=== PATIENT | male | born 1995 | race Caucasian/White ===

== ENCOUNTER 2017-10-29 21:36 | Observation (INO) ==
[2017-10-29] MEDS ORDERED: cefTRIAXone 1,000 MG in Water for inj. (sterile) 20 ML 10 ML IVP ONE (21:49)
--- NOTE | 2017-10-29 21:51 | Emergency Department Note ---
Disposition Clinical Impression: Cellulitis and abscess of hand Disposition: Admitted As Inpatient General Adult HPI - General Chief complaint: ED Skin/Abscess/Foreign Body Stated complaint: infection in thumb Time Seen by Provider: 10/29/17 21:46 Source: patient Limitations: no limitations - History of Present Illness Pain Scale: 7 - Related Data Previous Rx's Medication Instructions Recorded Ciprofloxacin [Cipro] 500 mg PO BID #20 tablet 10/29/17 Doxycycline 100 mg PO BID #20 capsule 10/29/17 Allergies Allergy/AdvReac Type Severity Reaction Status Date / Time No Known Allergies Allergy Verified 10/29/17 21:42 Past Medical History - Past Medical History Medical history: Reports: no medical history Surgical history: Reports: non-contributory Psychiatric history: Reports: no psych history - Social History Smoking Status: Never smoker Smokeless Tobacco Status: No Alcohol use: Reports: none Drug use: Reports: none Physical Exam - General Limitations: no limitations General appearance: alert, in no apparent distress Course - Reevaluation(s) Reevaluation #1: Attestation note I examined this patient and my medical decision-making was reviewed with the emergency medicine resident. I agree with the documented findings, disposition and treatment plan as described except to the extent set forth below. Patient seen with emergency medicine resident Dr. Junaid Lara, Please see a copy of his note for details of the H&P, ED evaluation, management and disposition. I have independently evaluated the patient and confirmed appropriate portions of the history and physical exam. Briefly: 22-year-old male [id number] was seen last night by Dr. Lara for an infection in his right thumb was given a dose of IV antibiotics and sent discharge home to oral antibiotics. However patient is having worsening redness and discomfort and swelling. Patient will be admitted after screening labs are repeated in the ED for cellulitis spelled outpatient management. Admission disposition pending Time: 21:49 Vital Signs Temperature 98.2 F 10/29/17 21:40 Pulse Rate 102 10/29/17 21:40 Respiratory Rate 20 10/29/17 21:40 Blood Pressure 156/84 10/29/17 21:40 O2 Sat by Pulse Oximetry 98 10/29/17 21:40 Temperature 98.2 F 10/29/17 21:45 Pulse Rate 102 10/29/17 21:45 Respiratory Rate 20 10/29/17 21:45 Blood Pressure 156/84 10/29/17 21:45 O2 Sat by Pulse Oximetry 98 10/29/17 21:45 Oxygen Delivery Oxygen Delivery Room Air
[2017-10-29] MEDS ORDERED: 0.9 % Sodium Chloride 1,000 ML IVC ONE (21:52)
--- NOTE | 2017-10-29 21:52 | Emergency Department Note ---
Disposition Clinical Impression: Cellulitis and abscess of hand Cellulitis Qualifiers: Site of cellulitis: extremity Site of cellulitis of extremity: finger Laterality: right Qualified Code(s): L03.011 - Cellulitis of right finger Disposition: Admitted As Inpatient Condition: Undetermined Forms: ED Satisfaction Letter Time of Disposition: 22:14 Skin/Abscess/FB HPI Chief complaint: ED Skin/Abscess/Foreign Body Stated complaint: infection in thumb Time Seen by Provider: 10/29/17 21:46 Source: patient Mode of arrival: ambulatory Limitations: no limitations Nursing Notes Reviewed: Yes Vital Signs Reviewed: Yes HPI Narrative: 22-year-old male with no previous medical history arrives to the emergency department as a recheck for cellulitis of the right thumb. The patient was seen by myself roughly 1 day ago he was evaluated for cellulitis of the right thumb. CT scan shows cellulitis. He was given 1 dose of vancomycin here in the emergency department and prescribed Cipro and doxycycline outpatient to which he took. The patient states that he is having worsening swelling, pain and the redness starting to move proximally from his right hand. The patient denies any fevers chills or crepitus noted. No crepitus on examination. Patient denies any other complaints. Given the patient's failed outpatient cellulitis, we will admit the patient to the hospital at this time with IV anabiotic's. Patient made aware and agrees to plan. No further questions or concerns noted. Home Medications Medication Instructions Recorded Confirmed No Known Home Drugs 10/29/17 10/29/17 Allergies Allergy/AdvReac Type Severity Reaction Status Date / Time No Known Allergies Allergy Verified 10/29/17 21:53 All systems ED: reviewed and negative except as stated. Constitutional: Denies: fever, chills, weakness ENT ED: Denies: congestion Cardiovascular: Denies: chest pain Respiratory: Denies: dyspnea Gastrointestinal: Denies: abdominal pain Genitourinary: Denies: urgency Musculoskeletal: Denies: back pain Integumentary: Reports: lesions Neurological: Denies: headache Past Medical History - Past Medical History Attestation: Yes The following information was validated with the patient. Source: patient Medical history: Reports: no medical history Surgical history: Reports: non-contributory Psychiatric history: Reports: no psych history - Social History Smoking Status: Never smoker Smokeless Tobacco Status: No Alcohol use: Reports: none Drug use: Reports: none Physical Exam - General Limitations: no limitations General appearance: alert, in no apparent distress - Head Head exam: atraumatic, normocephalic, normal inspection - Eye Eye exam: Present: normal appearance, PERRL, EOMI - ENT ENT exam: normal exam, normal oropharynx, mucous membranes moist - Neck Neck exam: Present: normal inspection - Chest Chest inspection: Present: normal inspection, symmetric chest wall rise - Respiratory Respiratory exam: Absent: respiratory distress - Cardiovascular Cardiovascular exam: Present: tachycardia - Extremities Exam Extremities exam: Present: other (Patient has tenderness and swelling to right first digit on the dorsal aspect. There is erythema that is radiating proximally from demarcation that was noted from one day ago. Tenderness with flexion and extension noted. Swelling has increased from examination 24 hours ago.) - Neurological Exam Neurological exam: Present: alert, oriented X3 - Skin Skin exam: Present: erythema Course Vital Signs Temperature 98.2 F 10/29/17 21:40 Pulse Rate 102 10/29/17 21:40 Respiratory Rate 20 10/29/17 21:40 Blood Pressure 156/84 10/29/17 21:40 O2 Sat by Pulse Oximetry 98 10/29/17 21:40 Temperature 98.2 F 10/29/17 21:45 Pulse Rate 102 10/29/17 21:45 Respiratory Rate 20 10/29/17 21:45 Blood Pressure 156/84 10/29/17 21:45 O2 Sat by Pulse Oximetry 98 10/29/17 21:45 Oxygen Delivery Oxygen Delivery Room Air Skin/Abscess/Foreign Body - MDM Narrative Medical decision making narrative: Patient will be admitted to the hospital at this time. Accepted by Dr. Patton. - Lab Data Lab results reviewed: Yes I reviewed the patient's lab results. Result diagrams: 10/29/17 21:53 Lab Results 10/29/17 Range/Units 21:53 WBC 10.5 (4.3-11.1) K/mcL RBC 5.44 (4.19-5.50) M/mcL Hgb 16.2 (12.9-16.9) g/dL Hct 48.2 (37.5-50.1) % MCV 88.6 (83.0-100.0) fL MCH 29.8 (28.0-33.3) pg MCHC 33.6 (31.6-35.5) g/dL RDW 12.8 (11.5-14.5) % Plt Count 146 (140-400) K/mcL MPV 10.6 (9.4-12.4) fL Immature Gran % 0.3 (0-4) % Seg Neutrophils % 65.6 % Lymphocytes % 24.7 % Monocytes % 6.8 % Eosinophils % 2.1 % Basophils % 0.5 % Neutrophils # 6.9 (1.6-8.9) K/mcL Lymphocytes # 2.6 (0.6-4.6) K/mcL Monocytes # 0.7 (0.0-1.3) K/mcL Eosinophils # 0.2 (0.0-0.6) K/mcL Basophils # 0.1 (0.0-0.2) K/mcL
[2017-10-29 22:06] LABS: Basophils # 0.1 K/mcL (0.0-0.2); Basophils % 0.5 %; Eosinophils # 0.2 K/mcL (0.0-0.6); Eosinophils % 2.1 %; Hematocrit 48.2 % (37.5-50.1); Hemoglobin 16.2 g/dL (12.9-16.9); Immature Granulocytes % 0.3 % (0-4); Lymphocytes # 2.6 K/mcL (0.6-4.6); Lymphocytes % 24.7 %; Mean Corpuscular HGB Conc 33.6 g/dL (31.6-35.5); Mean Corpuscular Hemoglobin 29.8 pg (28.0-33.3); Mean Corpuscular Volume 88.6 fL (83.0-100.0); Mean Platelet Volume 10.6 fL (9.4-12.4); Monocytes # 0.7 K/mcL (0.0-1.3); Monocytes % 6.8 %; Neutrophils # 6.9 K/mcL (1.6-8.9); Platelet Count 146 K/mcL (140-400); Red Blood Count 5.44 M/mcL (4.19-5.50); Red Cell Distribution Width 12.8 % (11.5-14.5); Segmented Neutrophils % 65.6 %
[2017-10-29 22:25] LABS: BUN/Creatinine Ratio 13 (6-26); Blood Urea Nitrogen 11 mg/dL (6-20); Calcium 9.8 mg/dL (8.6-10.3); Carbon Dioxide 29 mEq/L (23-29); Chloride 104 mEq/L (98-107); Glucose 108 mg/dL (70-105); Osmolality,Calculated 288 (280-300); Potassium 4.1 mEq/L (3.5-5.1); Sodium 139 mEq/L (136-145); eGFR For African Americans > 60 (> 60); eGFR For Non-African Americans > 60 (> 60)
--- NOTE | 2017-10-29 23:00 | Internal Med History&Physical ---
Date of Encounter: 10/30/17 Time of Encounter: 23:00 Internal Medicine - H&P: HPI Chief complaint: thumb pain History of present illness: Mr. Villavicencio is a 22 year old malewith no previous medical history arrives to the emergency department as a recheck for cellulitis of the right thumb. The patient was seen by 1 day ago he was evaluated for cellulitis of the right thumb. CT scan shows cellulitis. He was given 1 dose of vancomycin in emergency department and prescribed Cipro and doxycycline outpatient. The patient states that he is having worsening swelling, pain and the redness starting to move proximally from his right hand. The patient was admitted for further management. Past Med Surg Social Fam HX - Past Medical History Medical history: no medical history Psychiatric history: no psych history - Past Surgical History Surgical History: non-contributory - Social History Smoking Status: Never smoker Smokeless Tobacco Status: No Alcohol use: none Drug use: none Internal Medicine - H&P: Meds No Known Home Drugs 10/29/17 [History] 3 Allergy/AdvReac Type Severity Reaction Status Date / Time No Known Allergies Allergy Verified 10/29/17 21:53 All Systems PM: A 10-system review of systems was performed and is negative for pertinent findings except as documented above in the HPI. - Constitutional Constitutional: no chills, no fever(s), no night sweats - Cardiovascular Cardiovascular ROS IM: no chest pain, no diaphoresis, no dyspnea, no lightheadedness, no palpitations, no syncope - Respiratory Respiratory: no cough, no dyspnea, no wheezing, no excessive phlegm production - Gastrointestinal Gastrointestinal: no abdominal pain, no diarrhea, no hematemesis, no hematochezia, no melena, no nausea, no vomiting - Neurological Neurological ROS: no confusion, no convulsions, no focal weakness, no numbness, no tingling, no tremor(s) - Constitutional Vitals: Temp Pulse Resp BP Pulse Ox 98.2 F 102 18 142/87 98 10/29/17 21:45 10/29/17 21:45 10/29/17 22:53 10/29/17 22:53 10/29/17 21:45 General appearance: Present: A&O X 3 - Head Head exam: Present: atraumatic, normocephalic - Neck Neck exam general surgery: Present: supple, trachea midline. Absent: lymphadenopathy - Respiratory Respiratory exam: Present: CTAB. Absent: accessory muscle use, rales, rhonchi, wheezes - Cardiovascular Cardiovascular exam: Present: RRR, +S1, +S2. Absent: diastolic murmur, gallop, rubs, systolic murmur - GI/Abdominal GI/Abdominal exam: Present: normal bowel sounds, soft, no peritoneal signs. Absent: distended, tenderness - Extremities Exam Extremities exam: Present: tenderness, warm Internal Med - H&P Results - Labs CBC & Chem 7: 10/30/17 02:50 10/30/17 02:50 - Assessment and plan (1) Cellulitis Current Visit: Yes Status: Acute Assessment and plan: We will start empiric antibiotics, I suspect spider bite. Said that her surgery consult if there is no improvement Qualifiers: Site of cellulitis: extremity Site of cellulitis of extremity: finger Laterality: right Qualified Code(s): L03.011 - Cellulitis of right finger - Time Spent With Patient Total time spent is greater than 50% in coordination of care (as documented) at patient's floor/unit and/or counseling patient:
[2017-10-30] MEDS ORDERED: Acetaminophen 325 MG TABLET PO PRN (01:59)
[2017-10-30] MEDS ORDERED: Naloxone 0.4 MG/ML INJ IVP PRN (01:59)
[2017-10-30] MEDS: *HR* HYDROcodone/Acet 5/325 mg TABLET PO PRN ×3 (02:42→21:08)
[2017-10-30] MEDS: 0.9 % Sodium Chloride 1,000 ML IVC SCH ×2 (02:43→10:42)
[2017-10-30 03:01] LABS: Basophils % 0.4 %; Eosinophils # 0.2 K/mcL (0.0-0.6); Eosinophils % 1.8 %; Hematocrit 47.1 % (37.5-50.1); Hemoglobin 15.9 g/dL (12.9-16.9); Immature Granulocytes % 0.2 % (0-4); Immature Platelets 3.8 % (1.1-6.1); Lymphocytes # 2.2 K/mcL (0.6-4.6); Lymphocytes % 21.5 %; Mean Corpuscular HGB Conc 33.8 g/dL (31.6-35.5); Mean Corpuscular Hemoglobin 29.5 pg (28.0-33.3); Mean Corpuscular Volume 87.4 fL (83.0-100.0); Mean Platelet Volume 10.5 fL (9.4-12.4); Monocytes # 0.6 K/mcL (0.0-1.3); Monocytes % 6.1 %; Neutrophils # 7.1 K/mcL (1.6-8.9); Platelet Count 129 K/mcL (140-400); Red Blood Count 5.39 M/mcL (4.19-5.50); Red Cell Distribution Width 12.7 % (11.5-14.5)
[2017-10-30 03:19] LABS: Alanine Aminotransferase 15 Units/L (7-52); Albumin 4.4 g/dL (3.5-5.7); Albumin/Globulin Ratio 1.9 (1.1-2.2); Alkaline Phosphatase 94 Units/L (34-104); Aspartate Amino Transferase 15 Units/L (13-39); BUN/Creatinine Ratio 12 (6-26); Bilirubin,Total 0.6 mg/dL (0.3-1.0); Blood Urea Nitrogen 9 mg/dL (6-20); Calcium 9.6 mg/dL (8.6-10.3); Carbon Dioxide 26 mEq/L (23-29); Chloride 106 mEq/L (98-107); Chol/HDL Ratio 2.7 (0-4.9); Cholesterol 107 mg/dL (< 200); Globulin 2.3 g/dL (2.4-3.5); Glucose 109 mg/dL (70-105); HDL Cholesterol 40 mg/dL (40-59); LDL Cholesterol,Calculated 52 mg/dL (0-99); Magnesium 1.9 mg/dL (1.6-2.6); Osmolality,Calculated 285 (280-300); Phosphorous 3.6 mg/dL (2.7-4.5); Potassium 4.1 mEq/L (3.5-5.1); Sodium 138 mEq/L (136-145); Total Protein 6.7 g/dL (6.4-8.9); Triglycerides 73 mg/dL (< 150); eGFR For African Americans > 60 (> 60); eGFR For Non-African Americans > 60 (> 60)
[2017-10-30 03:32] LABS: INR 1.1; Prothrombin Time 12.3 Seconds (9.4-12.1)
[2017-10-30 03:34] LABS: Activated Partial Thrombo Time 32.1 Seconds (26.0-36.0)
--- NOTE | 2017-10-30 10:25 | Internal Med Progress Note ---
Date of Encounter: 10/30/17 Time of Encounter: 10:23 - Assessment and plan (1) Cellulitis Current Visit: Yes Status: Acute Assessment and plan: Patient right thumb cellulitis improved with decrease the size of the rash, continue IV antibiotics, plan to switch to oral antibiotics tomorrow and discharge. Qualifiers: Site of cellulitis: extremity Site of cellulitis of extremity: finger Laterality: right Qualified Code(s): L03.011 - Cellulitis of right finger - Time Spent With Patient Total time spent is greater than 50% in coordination of care (as documented) at patient's floor/unit and/or counseling patient: 25 - 35 minutes - Subjective Interval history: Patient seen and examined in the room, right thumb cellulitis has improved. - Constitutional Vitals: Temp Pulse Resp BP Pulse Ox 98.1 F 60 16 154/67 100 10/30/17 07:32 10/30/17 07:32 10/30/17 07:32 10/30/17 07:32 10/30/17 07:32 General appearance: Present: A&O X 3 Exam: PHYSICAL EXAMINATION: GENERAL APPEARANCE: The patient is alert, oriented and in no acute distress. HEENT: Head is normocephalic. The sinuses are nontender. Pupils are equal and reactive. The nares are patent. Oropharynx clear without lesions. NECK: Supple without lymphadenopathy. HEART: Regular rate and rhythm. LUNGS: No crackles or wheezes are heard. ABDOMEN: Soft, nontender, nondistended with good bowel sounds heard. Inguinal area is normal. EXTREMITIES: Without cyanosis, clubbing or edema. NEUROLOGICAL: Gross nonfocal. SKIN: Right thumb cellulitis noted. Internal Medicine: Result - Labs CBC & Chem 7: 10/30/17 02:50 10/30/17 02:50 Labs: Short CBC 10/30/17 Range/Units 02:50 WBC 10.2 (4.3-11.1) K/mcL Hgb 15.9 (12.9-16.9) g/dL Hct 47.1 (37.5-50.1) % Plt Count 129 L (140-400) K/mcL Neutrophils # 7.1 (1.6-8.9) K/mcL BMP 10/30/17 02:50 Sodium 138 Potassium 4.1 Chloride 106 Carbon Dioxide 26 BUN 9 Creatinine 0.74 Glucose 109 H Calcium 9.6 Liver Function 10/30/17 Range/Units 02:50 Total Bilirubin 0.6 (0.3-1.0) mg/dL AST 15 (13-39) Units/L ALT 15 (7-52) Units/L Alkaline Phosphatase 94 (34-104) Units/L Albumin 4.4 (3.5-5.7) g/dL - ABG Interpretation ABG results: PT/INR, D-dimer PT 12.3 Seconds (9.4-12.1) H 10/30/17 02:50 Consult Discharge Plan - Plan Referrals: NONE,PCP [Primary Care Provider] -
[2017-10-30 11:02] LABS: Bilirubin,Urine Negative (Negative); Blood,Urine Negative (Negative); Clarity,Urine Clear (Clear); Color,Urine Yellow (Yellow); Glucose,Urine (UA) Normal (Normal); Ketones,Urine Negative (Negative); Leukocyte Esterase,Urine Negative (Negative); Nitrite,Urine Negative (Negative); PH,Urine 6.5 pH Units (5.0-8.0); Protein,Urine Negative (Neg-Trace); Specific Gravity,Urine 1.017 (1.010-1.025); Urobilinogen,Urine Normal (Normal)
[2017-10-31] MEDS: *HR* HYDROcodone/Acet 5/325 mg TABLET PO PRN (10:29)
[2017-10-31 11:16] VITALS: BP 131/77
--- NOTE | 2017-10-31 11:48 | Discharge Summary ---
- NOTES TO OUTPATIENT PROVIDER Notes to Outpatient Provider: Mr. Villavicencio a 22 year old male was admitted for cellulitis of the right thumb d/t suspected spider bite on 10/29/2017 from the emergency department. . Patient was discharged on 10/31/2017 with continuation of po Doxycycline, and Cipro for the next 10 days. Advised to follow up with PCP in 3-5 days. Date of Encounter: 10/31/17 Time of Encounter: 11:39 - Discharge Diagnosis (1) Cellulitis Priority: Primary Status: Acute Assessment and Plan: To receive next dose of Vancomycin. Discussed with patient to be discharged home on Doxycycline and Cipro PO, and follow up with PCP. Will discharge home. Qualifiers: Site of cellulitis: extremity Site of cellulitis of extremity: finger Laterality: right Qualified Code(s): L03.011 - Cellulitis of right finger (2) Cellulitis and abscess of hand Priority: Primary Status: Acute Assessment and Plan: See above Hospital course: Mr. Villavicencio is a 22 year old male Hospital course : CT scan of right thumb showed cellulitis. he was given 1 dose of IV Vancomycin, in the ED and was prescribed Doxycycline and Cipro as outpatients. He stated that he was unable to fill the po outpatinet medications, and returned to the ED subsequently was admitted to the Observation Unit with [facility]. He was continued on IV Vancomycin with improvement of cellulites right thumb. Discharge discussed with: family (Complete all antibiotics til gone. Keep wound clean and dry. If s/s fail to improve or worsen, return to urgent care, or ED ) - Time Spent with Patient Total time spent providing and/or coordinating discharge services: - Discharge Medications Prescriptions: Ciprofloxacin [Cipro] 500 mg PO BID 10 Days #20 tablet Doxycycline Hyclate 100 mg PO BID 10 Days #20 capsule Home Medications: Ciprofloxacin [Cipro] 500 mg PO BID 10 Days #20 tablet 10/31/17 [Rx] Doxycycline Hyclate 100 mg PO BID 10 Days #20 capsule 10/31/17 [Rx] Allergies/Adverse Reactions: 3 Allergy/AdvReac Type Severity Reaction Status Date / Time No Known Allergies Allergy Verified 10/29/17 21:53 Date of admission: 10/29/17 22:30 Primary care physician: PCP NONE - Constitutional Vitals: Temp Pulse Resp BP Pulse Ox 98.4 F 72 18 131/77 98 10/31/17 11:15 10/31/17 11:15 10/31/17 11:15 10/31/17 11:15 10/31/17 11:15 General appearance: Present: A&O X 3, pleasant - Respiratory Respiratory exam: Present: CTAB - Cardiovascular Cardiovascular exam: Present: RRR - Neurological Exam Neurological exam: Present: CN II-XII intact, normal gait, oriented X3 - Skin Skin exam: Present: erythema, warm Additional comments: Right thumb shows improvement of the cellulitic changes to the skin with decrease in swelling has lessened significantly with the vancomycin treatment. There is a black central lesion due to insect puncture wound from previous spider bite edema mild swelling approximately 3 cm in diameter located on the dorsal aspect of the right thumb. No drainage is noted at this time - Patient Status Disposition: Home, Self-Care Condition: Good Functional capacity at discharge: independent ambulation - Discharge Instructions Instructions: Cellulitis (DC) Follow Up With: NONE,PCP [Primary Care Provider] - - Diet and Activity Activity: resume usual activities as tolerated
--- NOTE | 2017-10-31 12:32 | Internal Med Progress Note ---
Date of Encounter: 10/31/17 Time of Encounter: 12:31 - Assessment and plan (1) Cellulitis Current Visit: Yes Status: Acute Qualifiers: Site of cellulitis: extremity Site of cellulitis of extremity: finger Laterality: right Qualified Code(s): L03.011 - Cellulitis of right finger (2) Cellulitis and abscess of hand Current Visit: Yes Status: Acute - Time Spent With Patient Total time spent is greater than 50% in coordination of care (as documented) at patient's floor/unit and/or counseling patient: - Subjective Interval history: Nursing staff notified that [facility] urgent care had called the patient and c/s was positive for MRSA. Is being discharged on appropriate po medications to cover Bacteremia - Constitutional Vitals: Temp Pulse Resp BP Pulse Ox 98.4 F 72 18 131/77 98 10/31/17 11:15 10/31/17 11:15 10/31/17 11:15 10/31/17 11:15 10/31/17 11:15 General appearance: Present: A&O X 3, pleasant Internal Medicine: Result - Labs CBC & Chem 7: 10/30/17 02:50 10/30/17 02:50 - ABG Interpretation ABG results: PT/INR, D-dimer PT 12.3 Seconds (9.4-12.1) H 10/30/17 02:50 Consult Discharge Plan - Plan Instructions: Ciprofloxacin (By mouth), Doxycycline (By mouth), Cellulitis (DC) Referrals: NONE,PCP [Primary Care Provider] - (please call [phone] to get set up with a primary care provider) Prescriptions: Ciprofloxacin [Cipro] 500 mg PO BID 10 Days #20 tablet Doxycycline Hyclate 100 mg PO BID 10 Days #20 capsule
[2017-10-31] MEDS ORDERED: Aminoglycoside Consult 1 EACH MC ONE (12:47)
== END 2017-10-31 12:48 | disposition home or self-care (01) ==
LOC: 3BNU 21:36 → EMEROO 21:36 → 3BNU 23:07
PROVIDERS: ADMIT Internal Medicine Nephrology; ATTEND Family Medicine